=== PATIENT | male | born 1955 | race Caucasian/White ===

== ENCOUNTER → 2018-08-03 | Outpatient (CLI) | payer OTHER ==
--- NOTE | 2018-08-03 08:16 | RAD ---
Abdominal ultrasound, 08/03/2018: HISTORY: Right upper quadrant pain The gallbladder is within normal limits in size. There is no sonographic evidence of cholelithiasis. The gallbladder isidro are not thickened. The common hepatic duct measures 3 mm. The hepatic echogenicity appears mildly increased, most commonly due to fatty change. No hepatic mass is evident. The pancreas and much of the aorta and inferior vena cava were obscured by overlying bowel. The spleen is at the upper limits of normal in size measuring 13.3 cm in craniocaudad extent. No renal abnormality is detected. No free fluid is evident in the abdomen. IMPRESSION: 1. Increased hepatic echogenicity suggesting fatty change. 2. The spleen is at the upper limits of normal in size. 3. Obscuration of the pancreas and much of the central retroperitoneum by overlying bowel. Electronically signed by: Sunny Broussard MD (08/03/2018 8:13 AM) [facility]– [place]
== END | disposition home or self-care (01) ==
LOC: US 06:08
PROVIDERS: ATTEND Nurse Practitioner Family
DX: R10.11 Right upper quadrant pain (principal); R19.7 Diarrhea, unspecified
CPT/HCPCS: 76700

== ENCOUNTER → 2020-12-06 | Outpatient (CLI) | payer MEDICARE ==
--- NOTE | 2020-12-06 06:47 | RAD ---
EXAM: ULTRASOUND ABDOMEN COMPLETE CLINICAL HISTORY: Reason: BLOATING, ABDOMINAL DISCOMFORT, POSTPRANDIAL ABDOMINAL BLOATING / Spl. Inst ructions: / History: COMPARISON: None available. TECHNIQUE: Ultrasound of the upper abdomen was performed. FINDINGS: Pancreas is obscured by overlying bowel gas.. The liver measures 17.1 in length in the right mid clavicular line. Increased hepatic echogenicity r elative to the right kidney consistent with hepatic steatosis.. There are no focal liver lesions. Fl ow seen within the portal veins. The gallbladder is normal in appearance without evidence for cholelithiasis. There is no wall thicke geronimo or pericholecystic fluid. There is no pain with direct transducer pressure over the gallbladder . The common bile duct measures 0.4 cm. The spleen measures 13.5 cm, enlarged. The right kidney measures 13.2 cm in bipolar length. Normal renal cortical echotexture and thickness. No focal renal lesion, hydronephrosis or shadowing renal calculus. The left kidney measures 11.9 cm in bipolar length. Normal renal cortical echotexture and thickness. No focal renal lesion, hydronephrosis or shadowing renal calculus. Visualized portions of the abdominal aorta and inferior vena cava are unremarkable, although in gener al mostly obscured by overlying bowel gas. There is no free fluid in the upper abdomen. IMPRESSION: Splenomegaly Increased echogenicity of the liver, likely fatty liver. Electronically signed by: Omar Abad MD (12/06/2020 6:45 AM) [facility]
== END ==
LOC: US 06:02
PROVIDERS: ATTEND Family Medicine
DX: R16.1 Splenomegaly, not elsewhere classified (principal); R93.2 Abnormal findings on diagnostic imaging of liver and biliary tract; R14.0 Abdominal distension (gaseous); R10.9 Unspecified abdominal pain
CPT/HCPCS: 76700